=== PATIENT | male | born 1950 | race Caucasian/White ===

== ENCOUNTER 2016-08-15 14:17 | Emergency (ER) | payer OTHER, SELFPAY ==
[2016-08-15] MEDS ORDERED: TYLENOL 325 MG PO STA (14:39)
[2016-08-15] MEDS ORDERED: TYLENOL 325 MG ONE (14:42)
--- NOTE | 2016-08-15 14:48 | ERPHSYRPT ---
- History of Present Illness Time Seen by Provider: 08/15/16 14:30 Source: patient Exam Limitations: clinical condition Patient Subjective Stated Complaint: lt great toe injury--1330 Triage Nursing Assessment: lt great toe injury at 1330--dropped an approx 20 lbs stop sign post on lt great toe. nailbed bruised with a small abrasion below nailbed. pedal pulse present. no other injury Physician History: PATIENT DROPPED A 20 POUND SIGN POST ONTO HIS LEFT GREAT TOE. PATIENT COMPLAINS OF PAIN WITH AN ABRASION AT BASE OF TOE NAIL. DENIES DEFORMITY. Method of Injury: direct blow Occurred: just prior to arrival Quality: constant Severity of Pain-Max: mild Severity of Pain-Current: mild Lower Extremities Pain: 1st toe: left Modifying Factors: Improves With: movement Associated Symptoms: unable to bear weight Allergies/Adverse Reactions: No Known Drug Allergies Allergy (Verified 08/15/16 14:28) Home Medications: Atorvastatin Calcium [Lipitor] 20 mg PO HS 12/15/14 [History] Escitalopram Oxalate [Lexapro] 20 mg PO DAILY 09/01/15 [History] Clonazepam 1 mg PO HSPRN PRN 11/05/15 [History] Mirtazapine 30 mg [Remeron 30 mg] 30 mg PO HS 11/05/15 [History] Modafinil 200 mg PO BID 11/05/15 [History] Risperidone 1 mg [Risperdal 1 MG] 1 mg PO HS 11/05/15 [History] Rivaroxaban [Xarelto] 20 mg PO DAILY 08/15/16 [History] Hx Tetanus, Diphtheria Vaccination/Date Given: Yes Hx Influenza Vaccination/Date Given: Yes Hx Pneumococcal Vaccination/Date Given: Yes Immunizations Up to Date: Yes - Review of Systems Constitutional: No Symptoms, No Fever, No Chills Musculoskeletal: Injury, Joint Pain Psychological: No Symptoms Endocrine: No Symptoms All Other Systems: Reviewed and Negative - Past Medical History Pertinent Past Medical History: Yes Neurological History: Seizures ENT History: No Pertinent History Cardiac History: Arrhythmia Respiratory History: Sleep Apnea Endocrine Medical History: No Pertinent History Musculoskeletal History: No Pertinent History GI Medical History: No Pertinent History History: Other Psycho-Social History: Anxiety, Depression Male Reproductive Disorders: No Pertinent History Other Medical History: hx SLEEP APNEA-resolved, has not had a seizure in 10 years. - Past Surgical History Past Surgical History: Yes Neuro Surgical History: No Pertinent History Cardiac: No Pertinent History Respiratory: No Pertinent History Gastrointestinal: No Pertinent History Genitourinary: No Pertinent History Musculoskeletal: No Pertinent History, Orthopedic Surgery Male Surgical History: No Pertinent History Other Surgical History: BACK SURGERY X 3, sinus surgery for broken nose - Social History Smoking Status: Never smoker Exposure to second hand smoke: Yes Drug Use: none Patient Lives Alone: No - Nursing Vital Signs Nursing Vital Signs: Initial Vital Signs Temperature 98.0 F Temperature Source Oral Pulse Rate 70 Respiratory Rate 18 Blood Pressure [Left Arm] 122/66 Pain Intensity 3 - Physical Exam General Appearance: no apparent distress, alert Foot Exam: right foot: soft tissue tenderness ( TENDERNESS DISTAL PHALANGX, ABRASION WITH TENDERNESS, PROXIMAL NAIL FOLD, LIMITED RANGE OF MOTION DIP JOINT) DTR - Lower Extremities Exam: knee (R): 2+, knee (L): 2+, ankle (R): 2+, ankle ( L): 2+ Neuro/Tendon Exam: normal sensation, normal motor functions Mental Status Exam: alert, oriented x 3, cooperative SpO2 Interpretation: normal SpO2: 98 - Radiology Exams Right Foot X-ray Interpretation: Reviewed by me, Negative, No Fracture Ordered Tests: Active Orders 24 hr Category Date Time Status FOOT (MINIMUM 3 VIEWS) Stat Exams 08/15/16 14:38 Completed Medication Summary Discontinued Medications Generic Name Dose Route Start Last Admin Trade Name Jeevanq PRN Reason Stop Dose Admin Acetaminophen 650 mg 08/15/16 14:39 08/15/16 14:42 Tylenol 325 Mg PO 08/15/16 14:40 650 mg STAT STA Administration Acetaminophen Confirm 08/15/16 14:42 Tylenol 325 Mg Administered 08/15/16 14:43 Dose 650 mg .ROUTE .STK-MED ONE - Progress Progress: pain not gone completely Counseled pt/family regarding: diagnosis, need for follow-up, rad results - Departure Time of Disposition: 15:30 Departure Disposition: Home Clinical Impression: CONTUSION/STRAIN,ABRASION LEFT FOOT Condition: Stable Critical Care Time: No Additional Instructions: APPLY ICE OVER TOE SWELLING EVERY 4 HOURS, 30 MINUTES FOR 48 HOURS. NORCO 5/325 EVERY 4 HOURS NEEDED FOR PAIN. ANTIBIOTIC AUGMENTIN 875MG TWICE DAILY FOR 7 DAYS. WATCH FOR SIGNS OF INFECTION REDNESS, SWELLING OR DRAINAGE. Prescriptions: Hydrocodone Bit/Acetaminophen [[place] 5-325 Tablet] 1 each PO Q4H PRN PRN #15 tablet PRN Reason: Pain Amox Tr/Potass Clav. 875 mg [Augmentin 875-125 Tablet] 875 mg PO BID #14 tablet
--- NOTE | 2016-08-15 15:07 | XRAY ---
Indication: Great toe pain following injury. Comparison: None 3 nonweightbearing views of the left foot demonstrates heel spurs, fifth metatarsal base spurring, and tiny well circumscribed ossification of the medial first MTP either degenerative versus old injury. No other bony, articular, or soft tissue abnormalities.
[2016-08-15 15:27] VITALS: O2SAT 98
[2016-08-15 15:41] VITALS: BP 113/71; PULSE 79
== END 2016-08-15 15:40 | disposition home or self-care (01) ==
LOC: ED 14:17
DX: S90.112A Contusion of left great toe without damage to nail, initial encounter (principal); S93.502A Unspecified sprain of left great toe, initial encounter; S90.412A Abrasion, left great toe, initial encounter; W20.8XXA Other cause of strike by thrown, projected or falling object, initial encounter
CPT/HCPCS: 73630; 80307; 99283

== ENCOUNTER 2019-01-19 05:55 | Day surgery (SDC) | payer BC, MEDICARE ==
[2019-01-19] MEDS ORDERED: Lactated Ringers 1,000 ML IV ONE (06:25)
[2019-01-19] MEDS ORDERED: Lactated Ringers 1,000 ML IV SCH (06:30)
[2019-01-19] MEDS ORDERED: DIPRIVAN 200 MG/20 ML IV ONE ×2 (06:44→07:13)
[2019-01-19 07:48] VITALS: O2SAT 96
[2019-01-19 08:02] VITALS: BP 134/75; PULSE 62
--- NOTE | 2019-01-19 08:09 | OP ---
SURGERY DATE/TIME: 01/19/2019 0704 PREOPERATIVE DIAGNOSIS: Screening exam. POSTOPERATIVE DIAGNOSIS: Mild sigmoid diverticulosis otherwise normal colon. PROCEDURE: Colonoscopy. SURGEON: Dr. Bertrand. ANESTHESIA: MAC. Medications given by anesthesia department. HISTORY: The patient is a 68 year-old white male presenting now for screening colonoscopy. He was appraised of the risks of the procedure including the risk of perforation, phlebitis, untoward reaction to medication, bleeding and missed lesions. The patient verbalized his understanding and desired to have the procedure performed. DESCRIPTION OF PROCEDURE: The patient was given the medications by the anesthesia department. He had continuous pulse oximetry, ECG monitoring, intermittent blood pressure monitoring and tidal CO2 monitoring during the examination. He was placed in the left lateral decubitus position. A digital rectal examination was performed and revealed normal anal sphincter tone, no masses and normal prostate. The flexible Olympus pediatric colonoscope was used to intubate the rectum. A view of the colon was developed sequentially to the cecum. Upon insertion and withdrawal was noted mild sigmoid diverticulosis otherwise no mucosal lesions were encountered. The scope was removed from the patient who tolerated the procedure well and was sent back to OP recovery in good condition. The prep was noted to be fair.
== END 2019-01-19 08:17 | disposition home or self-care (01) ==
LOC: SDC 05:55
PROVIDERS: ATTEND Family Medicine
DX: Z12.11 Encounter for screening for malignant neoplasm of colon (principal); K57.30 Diverticulosis of large intestine without perforation or abscess without bleeding
CPT/HCPCS: J2704

== ENCOUNTER 2024-07-29 12:31 | Emergency (ER) | payer BC, OTHER ==
--- NOTE | 2024-07-29 13:09 | ERPHSYRPT ---
- History of Present Illness Time Seen by Provider: 07/29/24 13:08 Source: patient, family Exam Limitations: no limitations Physician History: This is a 74-year-old white male patient who was getting out of his truck when he slipped on ice getting out of it and hit his head neck and bilateral shoulders posteriorly. Patient drove himself to the emergency department. His primary care provider is Dr. Bertrand. Patient denies loss of consciousness. Patient has a history of hyperlipidemia, seizure disorder, depression/anxiety. He does not have chest pain. He does not have shortness of breath. He has no abdominal pain. Other than his posterior shoulders bilaterally, there were no other extremity injuries. Occurred: this morning Reason for Fall: slipped (On ice) Injuries/Pain Location: head, neck, upper extremity (B shoulder) Loss of Consciousness: no loss of consciousness Severity of Pain-Max: moderate Severity of Pain-Current: moderate Modifying Factors: Improves With: movement Associated Symptoms (Fall): headache, neck pain, No abdominal pain, No back pain, No chest pain, No shortness of breath, No slurred speech, No trouble walking, No vision changes Allergies/Adverse Reactions: No Known Drug Allergies Allergy (Verified 07/29/24 13:10) Home Medications: Atorvastatin Calcium [Lipitor] 20 mg PO HS 12/15/14 [History] Escitalopram Oxalate [Lexapro] 20 mg PO DAILY 09/01/15 [History] Mirtazapine 30 mg [Remeron 30 mg] 15 mg PO HS 11/05/15 [History] Risperidone 1 mg [Risperdal 1 MG] 1 mg PO HS 11/05/15 [History] Aspirin 81 mg PO DAILY 01/09/19 [History] Diphenoxylate HCl/Atropine [Lomotil] 1 udtab PO DAILY 01/09/19 [History] Mv-Min/Folic/K1/Lycopen/Lutein [Centrum Silver Men Tablet] 1 each PO DAILY 01/09/19 [History] Hx Tetanus, Diphtheria Vaccination/Date Given: Yes Hx Influenza Vaccination/Date Given: Yes Hx Pneumococcal Vaccination/Date Given: Yes Travel Risk - International Travel Have you traveled outside of the country in past 3 weeks: No - Emerging Infectious Disease Are you exhibiting symptoms associated with any current EIDs: No - Review of Systems Constitutional: No Symptoms Eyes: No Symptoms Ears, Nose, & Throat: No Symptoms Respiratory: No Symptoms Cardiac: No Symptoms Abdominal/Gastrointestinal: No Symptoms Genitourinary Symptoms: No Symptoms Musculoskeletal: Neck Pain, Fall Skin: No Symptoms Neurological: No Symptoms Psychological: No Symptoms Endocrine: No Symptoms Hematologic/Lymphatic: No Symptoms Immunological/Allergic: No Symptoms All Other Systems: Reviewed and Negative - Past Medical History Pertinent Past Medical History: Yes Neurological History: Seizures ENT History: No Pertinent History Cardiac History: No Pertinent History Respiratory History: No Pertinent History Endocrine Medical History: No Pertinent History Musculoskeletal History: No Pertinent History GI Medical History: No Pertinent History History: Other Psycho-Social History: Depression, Anxiety Male Reproductive Disorders: No Pertinent History Other Medical History: hx SLEEP APNEA-resolved, has not had a seizure in 15 years. - Past Surgical History Past Surgical History: Yes Neuro Surgical History: No Pertinent History Cardiac: No Pertinent History Respiratory: No Pertinent History Gastrointestinal: No Pertinent History Genitourinary: No Pertinent History Musculoskeletal: No Pertinent History, Orthopedic Surgery Male Surgical History: No Pertinent History Other Surgical History: BACK SURGERY X 3 " clip off some soft stuff from a rupture and had some fused,i might have a metal clamp in there ,not sure", sinus surgery for broken nose, colonoscopy done over 10 yrs ago "no poyps" - Social History Smoking Status: Never smoker Exposure to second hand smoke: Yes Drug Use: none Patient Lives Alone: No - Nursing Vital Signs Nursing Vital Signs: Initial Vital Signs O2 Sat by Pulse Oximetry 97 07/29/24 13:09 Pain Scale Pain Intensity 5 - [place] Coma Score Best Eye Response (Yani): (4) open spontaneously Best Verbal Response (Yani): (5) oriented Best Motor Response (Yani): (6) obeys commands Yani Total: 15 - Physical Exam General Appearance: no apparent distress, alert, anxiety Head Injury: no evidence of injury Eye Exam: PERRL/EOMI, eyes nml inspection ENT Exam: airway nml, nml ext.inspection, No evidence of ENT injury Neck Exam: supple, trachea midline, full range of motion, normal alignment Respiratory/Chest Exam: chest tenderness, normal breath sounds, No respiratory distress, No ecchymosis, No crepitus Cardiovascular Exam: normal heart sounds, regular rate/rhythm Gastrointestinal Exam: soft, normal bowel sounds, No tenderness Rectal Exam: not done Back Exam: normal inspection, normal range of motion, CVA tenderness Extremity Exam: normal inspection, normal range of motion, pelvis stable, No deformities, No lacerations Neurologic Exam: alert, oriented x 3, cooperative, 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, normal mood/affect, nml cerebellar function, nml station & gait, sensation nml Skin Exam: normal color, warm, dry SpO2 Interpretation: normal O2 Delivery: Room Air - Course Nursing assessment & vital signs reviewed: Yes Ordered Tests: Active Orders 24 hr Category Date Time Status CERVICAL SPINE WO CONTRAST [CT] Stat Exams 07/29/24 13:39 Completed HEAD WITHOUT CONTRAST [CT] Stat Exams 07/29/24 13:39 Completed SHOULDER Stat Exams 07/29/24 13:40 Completed SHOULDER Stat Exams 07/29/24 13:41 Completed - Progress Progress: unchanged, pain not gone completely Progress Note: 07/29/24 15:37 My medical decision making and the assignment of moderate complexity of this patient's medical issue today is based on review of the patient's past medical history, review of the patient's medication list, reviewed patient drug allergy list, history present illness and physical findings on examination. The workup in this patient includes bilateral shoulder plain film x-rays, CT scan of the head and cervical spine both without contrast. Differential diagnosis includes but is not limited to acute fracture dislocation bilateral shoulders, contusion bilateral shoulders, acute fracture, subluxation of cervical spine, acute intracranial abnormality, acute fracture of skull The radiologist interpreted all the following x-rays. I reviewed the impression. The impressions are as follows: The left shoulder x-ray shows no acute fracture or dislocation. There are degenerative changes present. The right shoulder x-ray shows no acute fracture or dislocation. There are degenerative changes. The CT scan of the head without contrast is a normal CT scan of the head without contrast exam. The CT scan of the cervical spine without contrast shows multilevel degenerative spondylosis and minimal left carotid calcifications. No acute fracture or subluxation present Counseled pt/family regarding: diagnosis, need for follow-up, rad results Medical Desision Making - Diagnostic Testing Diagnostic test were ordered, analyzed, and reviewed by me: Yes Radiological Interpretation: Reviewed by me, Teleradiologist Report - Risk of complications The pt has a mod risk of morbidity or mortality based on: Need for prescription drug management - Departure Departure Disposition: Home Clinical Impression: Fall with no significant injury, Headache, Cervical strain, Shoulder contusion Condition: Stable Critical Care Time: No Referrals: NIKOLE BERTRAND [Primary Care Provider] - Follow up/PCP as directed Additional Instructions: Ice pack to tender areas 3-4 times a day for the next 3 days. Take your medication as prescribed. Call your primary care provider today, 07/29/2024, to make arranges for follow-up appointment for further evaluation and management. Prescriptions: Oxycodone HCl/Acetaminophen [Percocet 5-325 mg Tablet] 1 each PO Q8H PRN PRN #6 tablet MDD 3 PRN Reason: Moderate To Severe Pain Naproxen 500 mg [Naprosyn 500 MG] 500 mg PO BID #10 tablet
[2024-07-29 13:18] VITALS: PULSE 88; RESP 20; TEMP 97.7
[2024-07-29 14:11] VITALS: BP 141/81; O2SAT 96
--- NOTE | 2024-07-29 15:08 | XRAY ---
Indication: Head injury following fall. Multiple contiguous axial images obtained through the head without contrast. Comparison: September 01, 2015. Normal appearing brain parenchyma, ventricles, and bony calvarium for patient's age. Visualized paranasal sinuses and mastoid air cells are clear. Impression: Continued normal CT head without contrast exam.
--- NOTE | 2024-07-29 15:10 | XRAY ---
Indication: Pain following fall. Multiple contiguous axial images obtained through the cervical spine. Sagittal and coronal reformatted images obtained. Comparison: None Axial images negative for acute fracture, suspicious bony lesions, or spinal canal stenosis. Minimal/mild C3-T1 degenerative endplate spurring and mild multilevel bilateral degenerative facet hypertrophy. Sagittal and coronal reformatted images demonstrates normal alignment. C3-T1 degenerative disc space narrowing. No acute compression fracture, subluxation, or jumped facet. Normal appearing craniocervical junction. Visualized noncontrasted soft tissues demonstrates minimal left carotid calcifications. Lung apices clear. Impression: Multilevel degenerative spondylosis and minimal left carotid calcifications. Negative acute fracture/subluxation.
--- NOTE | 2024-07-29 15:11 | XRAY ---
Indication: Status post fall. Comparison: None 3 view left shoulder demonstrates mild acromioclavicular degenerative arthropathy. No acute bony, articular, or soft tissue abnormalities.
--- NOTE | 2024-07-29 15:11 | XRAY ---
Indication: Status post fall. Comparison: None 3 view right shoulder demonstrates mild acromioclavicular degenerative arthropathy and mild multilevel thoracic degenerative spondylosis. No acute bony, articular, or soft tissue abnormalities.
== END 2024-07-29 16:02 | disposition home or self-care (01) ==
LOC: ED 12:31
DX: S16.1XXA Strain of muscle, fascia and tendon at neck level, initial encounter (principal); S40.012A Contusion of left shoulder, initial encounter; S40.011A Contusion of right shoulder, initial encounter; W00.0XXA Fall on same level due to ice and snow, initial encounter; Y99.0 Civilian activity done for income or pay; R51.9 Headache, unspecified; E78.5 Hyperlipidemia, unspecified; Z79.891 Long term (current) use of opiate analgesic; Z79.899 Other long term (current) drug therapy
CPT/HCPCS: 70450; 72125; 73030; 99284